=== PATIENT | male | born 1945 | race Caucasian/White ===

== ENCOUNTER 2018-09-01 18:12 | Inpatient (IN) ==
[2018-09-01] MEDS ORDERED: Famotidine PF Inj 20 MG/2 ML Vial IV.PUSH ONE (18:30)
[2018-09-01 18:52] LABS: Baso # (Auto) 0.2 th/mm3 (0.0-0.2); Baso % (Auto) 1.4 % (0.0-2.0); Eos # (Auto) 0.5 th/mm3 (0.0-0.4); Eos % (Auto) 3.4 % (0.0-4.0); Hematocrit 48.6 % (39.0-51.0); Hemoglobin 16.1 gm/dL (13.0-17.0); Lymph # (Auto) 3.3 th/mm3 (1.0-4.8); Lymph % (Auto) 21.9 % (9.0-44.0); Mean Corpuscular HGB Conc 33.3 % (32.0-36.0); Mean Corpuscular Hemoglobin 28.4 pg (27.0-34.0); Mean Corpuscular Volume 85.4 fL (80.0-100.0); Mean Platelet Volume 8.9 fL (7.0-11.0); Mono # (Auto) 1.1 th/mm3 (0.0-0.9); Mono % (Auto) 7.1 % (0.0-8.0); Neut # (Auto) 10.2 th/mm3 (1.8-7.7); Neut % (Auto) 66.2 % (16.0-70.0); Platelet Count 631 th/mm3 (150-450); Red Blood Count 5.69 mil/mm3 (4.50-5.90); Red Cell Distribution Width 12.9 % (11.6-17.2); White Blood Count 15.3 th/mm3 (4.0-11.0)
--- NOTE | 2018-09-01 18:55 | ED ---
HPI General Chief Complaint: Chest Pain Stated Complaint: Chest pain Time Seen by Provider: 09/01/18 18:19 Source: patient and family Limitations: no limitations History of Present Illness HPI narrative: Patient is a 72-year-old male, past medical history significant for diabetes, hypertension coronary artery disease with a recent cholecystectomy presents with complaint of 2 previous episodes of sudden, severe , epigastric/lower chest pain that is a sharp heaviness. It begins at rest while doing nothing in particular. It is associated with diaphoresis, nausea, vomiting. When it happened earlier today he gave himself 3 sprays of nitro and it eventually resolved though he is not sure if it is secondary to the nitro or not. No fever nor chills. No constipation or diarrhea. MD complaint: Reports chest pain STEMI Alert: No Onset (ago): hour(s) Duration: intermittent Onset: during rest Pain location: Reports substernal and epigastric Severity: severe Quality: Reports heaviness and sharp Pain radiation: Reports none Exacerbating factors: nothing Associated symptoms: Reports nausea and diaphoresis Treatments prior to arrival chest pain: Reports nitroglycerin Related Data Home Medications Medication Instructions Recorded Confirmed amlodipine 5 mg PO DAILY 09/01/18 09/01/18 aspirin [Aspir-81] 81 mg PO DAILY 09/01/18 09/01/18 fenofibric acid (choline) 135 mg PO DAILY 09/01/18 09/01/18 [Trilipix] fluticasone 1 spray INTRANASAL DAILY 09/01/18 09/01/18 isosorbide mononitrate 60 mg PO QAM 09/01/18 09/01/18 lisinopril 20 mg PO DAILY 09/01/18 09/01/18 metoprolol succinate 50 mg PO DAILY 09/01/18 09/01/18 nitroglycerin [Nitrostat] 0.4 mg SUBLINGUAL Q5-15M PRN 09/01/18 09/01/18 pantoprazole 40 mg PO DAILY 09/01/18 09/01/18 ranolazine [Ranexa] 500 mg PO BID 09/01/18 09/01/18 simvastatin 20 mg PO QPM 09/01/18 09/01/18 Allergies Allergy/AdvReac Type Severity Reaction Status Date / Time No Known Allergies Allergy Verified 09/01/18 18:30 Review of Systems ROS: all other systems reviewed are negative [facility] Medical History Medical History History of diabetes mellitus (Acute) Hypertension (Acute) Surgical History Surgical History Hx laparoscopic cholecystectomy (Acute) Hx of heart artery stent (Acute) Social History Social History Substance History: No History of Abuse Second Hand Smoke Exposure: No Smoking Status: Never smoker How Often Do You Have a Drink Containing Alcohol: 2 to 4 times a month Recent Travel in [facility] within the Last 8 Weeks: No Recent Out of Country Travel within the Last 8 Weeks: No Exam Narrative Exam Narrative: GENERAL: Well-appearing male in no acute distress; he is hard of hearing and forgot his hearing aids at home. SKIN: Focused skin assessment warm/dry. Previous surgical scars appear to be healing well. HEAD: Atraumatic. Normocephalic. EYES: Pupils equal and round. No scleral icterus. No injection or drainage. ENT: No nasal bleeding or discharge. Mucous membranes pink and moist. NECK: Trachea midline. No JVD. CARDIOVASCULAR: Regular rate and rhythm. No murmur appreciated. No rashes. RESPIRATORY: No accessory muscle use. Clear to auscultation. Breath sounds equal bilaterally. GASTROINTESTINAL: Abdomen soft, non-tender, nondistended. Hepatic and splenic margins not palpable. MUSCULOSKELETAL: No obvious deformities. No clubbing. No cyanosis. No edema. NEUROLOGICAL: Awake and alert. No obvious cranial nerve deficits. Motor grossly within normal limits. Normal speech. PSYCHIATRIC: Appropriate mood and affect; insight and judgment normal. Course Hospital Course: 1844: Patient had sudden spasm of the same pain in the low chest/upper abdomen. He is pale and diaphoretic with NBNB emesis. EKG shows normal sinus rhythm without ST T wave changes. Initial Documented Vital Signs Temperature 97.6 F 09/01/18 18:15 Pulse Rate 79 09/01/18 18:15 Respiratory Rate 20 09/01/18 18:15 Blood Pressure 139/77 09/01/18 18:15 Pulse Oximetry 96 09/01/18 18:15 Last Documented Vital Signs Temperature 97.6 F 09/01/18 18:15 Pulse Rate 75 09/01/18 20:20 Respiratory Rate 18 09/01/18 20:20 Blood Pressure 102/64 09/01/18 20:20 Pulse Oximetry 96 09/01/18 20:20 Medical Decision Making MDM Narrative Medical decision making narrative: Patient is a 72-year-old male who presents after having multiple episodes of severe pain in his lower chest/upper abdomen. He appeared well on arrival here initial EKG was unremarkable. He did have another episode while in the emergency department during which time he was diaphoretic with vomiting and appeared pale. EKG done at that time was unchanged. Labs reveal a white blood cell count of 15 and an elevated lipase. CT shows persistent pneumobilia in the common duct stent which is in place. I spoke with Dr Negron regarding the pneumobilia whom stated that it should persist essentially forever, but that the patient was at risk for cholangitis even without his gallbladder. He recommended the patient have antibiotics but stated that as he has had a cholecystectomy, there is nothing else to do surgically at this time (but patient may need GI). Cultures have been drawn and he has been given zosyn. He is being treated empirically for possible sepsis as he has a leukocytosis but may have a masked HR secondary to his medications. I discussed the case with Dr Shaw, hospitalist record clerk salesperson, whom agreed to the admission. Medical Screen Exam Complete: Yes Emergency Medical Condition: Yes Differential Diagnosis Differential Diagnosis: Differential diagnosis includes but is not limited to acute coronary syndrome, pericarditis, peptic ulcer disease, perforated viscus, pericarditis. Medical Records Medical records reviewed: Yes I reviewed the patient's medical records. Lab Data Lab results reviewed: Yes I reviewed the patient's lab results. Result diagrams: 09/01/18 18:20 09/01/18 18:20 Lab Results 09/01/18 09/01/18 09/01/18 Range/Units 18:20 18:20 18:20 CBC w Diff Auto diff final WBC 15.3 H (4.0-11.0) th/mm3 RBC 5.69 (4.50-5.90) mil/mm3 Hgb 16.1 (13.0-17.0) gm/dL Hct 48.6 (39.0-51.0) % MCV 85.4 (80.0-100.0) fL MCH 28.4 (27.0-34.0) pg MCHC 33.3 (32.0-36.0) % RDW 12.9 (11.6-17.2) % Plt Count 631 H (150-450) th/mm3 MPV 8.9 (7.0-11.0) fL Neut % (Auto) 66.2 (16.0-70.0) % Lymph % (Auto) 21.9 (9.0-44.0) % [place] % (Auto) 7.1 (0.0-8.0) % Eos % (Auto) 3.4 (0.0-4.0) % Baso % (Auto) 1.4 (0.0-2.0) % Neut # (Auto) 10.2 H (1.8-7.7) th/mm3 Lymph # (Auto) 3.3 (1.0-4.8) th/mm3 [place] # (Auto) 1.1 H (0.0-0.9) th/mm3 Eos # (Auto) 0.5 H (0.0-0.4) th/mm3 Baso # (Auto) 0.2 (0.0-0.2) th/mm3 WBC Differential . Differential Comment . D-Dimer Quant (PE/DVT) Cancelled Sodium 137 (136-145) meq/L Potassium 4.4 (3.5-5.1) meq/L Chloride 105 (98-107) meq/L Carbon Dioxide 21.3 (21.0-32.0) meq/L Anion Gap 11 (5-15) meq/L BUN 20 H (7-18) mg/dL Creatinine 1.30 (0.60-1.30) mg/dL Estimated GFR 54 L (>89) mL/min Random Glucose 110 H (74-106) mg/dL Calcium 7.8 L (8.5-10.1) mg/dL Total Bilirubin 0.5 (0.2-1.0) mg/dL AST 62 H (15-37) U/L ALT 33 (12-78) U/L Alkaline Phosphatase 61 (45-117) U/L Troponin I Less than 0.02 L (0.02-0.05) ng/mL B-Natriuretic Peptide (0-100) pg/mL Total Protein 7.2 (6.4-8.2) g/dL Albumin 3.3 L (3.4-5.0) g/dL Lipase 837 H (73-393) U/L Urine Color (Yellw/Straw) Urine Clarity (Clear) Urine pH (5.0-8.5) Ur Specific [place] (1.002-1.035) Urine Protein (Neg-Trace) mg/dL Urine Glucose (UA) (Negative) mg/dL Urine Ketones (Negative) mg/dL Urine Occult Blood (Negative) Urine Nitrate (Negative) Urine Bilirubin (Negative) Urine Urobilinogen (Less than 2) mg/dL Ur Leukocyte Esterase (Negative) Urine RBC (0-3) /hpf Urine WBC (0-5) /hpf Ur Squamous Epith Cells (0-5) /hpf Micro UA Comment Ur Microscopic Review Urine Culture Comments 09/01/18 09/01/18 Range/Units 18:20 22:00 CBC w Diff WBC (4.0-11.0) th/mm3 RBC (4.50-5.90) mil/mm3 Hgb (13.0-17.0) gm/dL Hct (39.0-51.0) % MCV (80.0-100.0) fL MCH (27.0-34.0) pg MCHC (32.0-36.0) % RDW (11.6-17.2) % Plt Count (150-450) th/mm3 MPV (7.0-11.0) fL Neut % (Auto) (16.0-70.0) % Lymph % (Auto) (9.0-44.0) % [place] % (Auto) (0.0-8.0) % Eos % (Auto) (0.0-4.0) % Baso % (Auto) (0.0-2.0) % Neut # (Auto) (1.8-7.7) th/mm3 Lymph # (Auto) (1.0-4.8) th/mm3 [place] # (Auto) (0.0-0.9) th/mm3 Eos # (Auto) (0.0-0.4) th/mm3 Baso # (Auto) (0.0-0.2) th/mm3 WBC Differential Differential Comment D-Dimer Quant (PE/DVT) Sodium (136-145) meq/L Potassium (3.5-5.1) meq/L Chloride (98-107) meq/L Carbon Dioxide (21.0-32.0) meq/L Anion Gap (5-15) meq/L BUN (7-18) mg/dL Creatinine (0.60-1.30) mg/dL Estimated GFR (>89) mL/min Random Glucose (74-106) mg/dL Calcium (8.5-10.1) mg/dL Total Bilirubin (0.2-1.0) mg/dL AST (15-37) U/L ALT (12-78) U/L Alkaline Phosphatase (45-117) U/L Troponin I (0.02-0.05) ng/mL B-Natriuretic Peptide 36 (0-100) pg/mL Total Protein (6.4-8.2) g/dL Albumin (3.4-5.0) g/dL Lipase (73-393) U/L Urine Color Yellow (Yellw/Straw) Urine Clarity Clear (Clear) Urine pH 5.0 (5.0-8.5) Ur Specific [place] Less/equal 1.005 (1.002-1.035) Urine Protein Trace (Neg-Trace) mg/dL Urine Glucose (UA) Negative (Negative) mg/dL Urine Ketones Negative (Negative) mg/dL Urine Occult Blood Negative (Negative) Urine Nitrate Negative (Negative) Urine Bilirubin Negative (Negative) Urine Urobilinogen 0.2 (Less than 2) mg/dL Ur Leukocyte Esterase Negative (Negative) Urine RBC 0-3 (0-3) /hpf Urine WBC 0-5 (0-5) /hpf Ur Squamous Epith Cells 0-5 (0-5) /hpf Micro UA Comment Culture not ind Ur Microscopic Review Microscopic reviewed Urine Culture Comments Culture not ind Imaging Data Attestation: I personally reviewed and interpreted this imaging study as follows : My impression: No acute cardiopulmonary process. Radiologist's impression: Chest X-Ray 09/01/18 18:30 CONCLUSION: No acute cardiopulmonary abnormality is identified. Abdomen/Pelvis CT 09/01/18 18:55 CONCLUSION: 1. No acute finding is identified to explain the abdominal pain. There is a stent within the common duct. Common duct is normal in size and there is pneumobilia. 2. Nonacute findings include moderate atherosclerotic disease, coronary artery calcification, and sigmoid diverticulosis. There is a 1.2 cm low-density lesion in the right mid kidney that does not meet criteria for a simple cyst. This should be further characterize when patient condition permits and correlated with prior studies. ECG Data EKG Prior to Arrival: No Attestation: I personally reviewed and interpreted this ECG as follows: (Sinus rhythm at a rate of [address] or T wave changes.) Discharge Plan Discharge Disposition Patient Disposition: ED Admit(ED Internal Use Only) Discharge Condition Condition: Stable Discharge Order Discharge Orders: ED Use Only Admit Order (Routine); Ordered 09/01/18 Ordered By: Brenda Stark Discharge Details Diagnosis: Abdominal pain, acute, epigastric, Chest pain, rule out acute myocardial infarction, Acute cholangitis Physicians Team ED Provider: Brenda Stark Attending Provider: James Shaw Other Providers: Fracisco Patel V Discharge Interventions Interventions: Vital Signs Last Done: 09/01/18 20:20 Status ED Status: Admitted Patient
[2018-09-01 18:57] LABS: Chloride 105 meq/L (98-107); Potassium 4.4 meq/L (3.5-5.1); Sodium 137 meq/L (136-145)
[2018-09-01 19:02] LABS: Calcium 7.8 mg/dL (8.5-10.1)
[2018-09-01 19:03] LABS: Albumin 3.3 g/dL (3.4-5.0); Anion Gap 11 meq/L (5-15); Blood Urea Nitrogen 20 mg/dL (7-18); Carbon Dioxide 21.3 meq/L (21.0-32.0); Glucose,Random 110 mg/dL (74-106); Lipase 837 U/L (73-393)
[2018-09-01 19:06] LABS: Alanine Aminotransferase 33 U/L (12-78); Aspartate Aminotransferase 62 U/L (15-37); Glomerular Filtration Rate 54 mL/min (>89)
[2018-09-01 19:08] LABS: Total Protein 7.2 g/dL (6.4-8.2)
[2018-09-01 19:09] LABS: Alkaline Phosphatase 61 U/L (45-117)
--- NOTE | 2018-09-01 19:30 | XR ---
EXAM DATE: 09/01/2018 7:28 PM EST AGE/SEX: 72 years / Male INDICATIONS: . Weakness. Cough. CLINICAL DATA: This is the patient's initial encounter. Patient reports that signs and symptoms have been present for 3 days and indicates a pain score of 5/10. MEDICAL/SURGICAL HISTORY: None. None. COMPARISON: No prior exams available for comparison. FINDINGS: PA and lateral views of the chest demonstrate a normal-sized cardiac silhouette. There is no effusion , consolidation, or pneumothorax. There is mild atelectasis at the lung bases. Bones and soft tissues demonstrate no acute abnormality. There is mild degenerative change of the thoracic spine. CONCLUSION: No acute cardiopulmonary abnormality is identified. Electronically signed by: Prem Austin MD 09/01/2018 7:29 PM EST
--- NOTE | 2018-09-01 21:19 | CT ---
EXAM DATE: 09/01/2018 8:54 PM EST AGE/SEX: 72 years / Male INDICATIONS: Chest pain and abdominal pain. CLINICAL DATA: This is the patient's initial encounter. Patient reports that signs and symptoms have been present for 1 day and indicates a pain score of 5/10. MEDICAL/SURGICAL HISTORY: . Diabetes mellitus. Hypertension. . Laparoscopic cholecystectomy. H eart artery stent. ORAL CONTRAST: No oral contrast ingested. RADIATION DOSE: 8.20 CTDI (mGy) COMPARISON: No prior exams available for comparison. TECHNIQUE: Multiple contiguous axial images were obtained through the abdomen and pelvis following b olus infusion of 80 ml Omnipaque 350 (iohexol) nonionic water-soluble contrast as a single exam dos e. No oral contrast ingested. Using automated exposure control and adjustment of the mA and/or kV ac cording to patient size, radiation dose was kept as low as reasonably achievable to obtain optimal di agnostic quality images. DICOM format image data is available electronically for review and comparis on. FINDINGS: Lower chest: There is mild dependent atelectasis at the lung bases. Coronary artery calcification is present. Hepatobiliary: No focal liver lesion is identified. Hepatic vasculature demonstrates no abnormality. Gallbladder is absent with clips in the gallbladder fossa. There is pneumobilia with a common duct st ent in place extends proximally from the origin of the common hepatic duct and distally into the seco nd portion of the duodenum. The common bile duct is nondilated but contains air. Kidneys: No hydronephrosis or stone. There is a 1.2 cm low-density lesion in the right mid kidney hollie t does not meet criteria for a simple cyst and there is a 5 mm low-density lesion in the left mid kid tor that is too small to characterize. Adrenal Glands: Within normal limits. Spleen: Within normal limits. Pancreas: Within normal limits. Vascular: The aorta is nonaneurysmal. There is moderate atherosclerotic calcification in the infraren al aorta. Bowel/Mesentery: The stomach and small bowel demonstrate no abnormality. No acute colon abnormality i s seen. There is no free intraperitoneal air or fluid. Appendix is normal. There is sigmoid diverticu losis. Abdominal Wall: No hernia is visualized. Retroperitoneum: No lymphadenopathy. Bladder: No wall thickening or mass. Reproductive: Within normal limits. Inguinal: No lymphadenopathy or hernia. Musculoskeletal: No acute osseous abnormality is identified. There are degenerative changes of the chester mbar spine. CONCLUSION: 1. No acute finding is identified to explain the abdominal pain. There is a stent within the common duct. Common duct is normal in size and there is pneumobilia. 2. Nonacute findings include moderate atherosclerotic disease, coronary artery calcification, and si gmoid diverticulosis. There is a 1.2 cm low-density lesion in the right mid kidney that does not meet criteria for a simple cyst. This should be further characterize when patient condition permits and c orrelated with prior studies. Electronically signed by: Prem Austin MD 09/01/2018 9:18 PM EST
[2018-09-01] MEDS ORDERED: Piperacil/Tazo 4.5 GM Premix 4.5 GM/100 ML BAG IV.SIG ONE (21:52)
[2018-09-01] MEDS ORDERED: Sod Chloride 0.9% Inj 1,000 ML IV.SIG SCH (22:00)
[2018-09-01] MEDS ORDERED: Bisacodyl 10 MG Supp RECTAL PRN (22:03)
[2018-09-01] MEDS ORDERED: Acetaminophen 325 MG Tablet PO PRN (22:03)
[2018-09-01 22:20] LABS: Bilirubin,Urine Negative (Negative); Clarity,Urine Clear (Clear); Color,Urine Yellow (Yellw/Straw); Glucose,Urine (UA) Negative (Negative); Leukocyte Esterase,Urine Negative (Negative); Nitrite,Urine Negative (Negative); Specific Gravity,Urine Less/Equal 1.005 (1.002-1.035); Urobilinogen,Urine 0.2 mg/dL (Less than 2)
[2018-09-01 22:27] LABS: RBC,Urine 0-3 /hpf (0-3); Squamous Epithelial Cell,Urine 0-5 /hpf (0-5); WBC,Urine 0-5 /hpf (0-5)
[2018-09-01 22:47] LABS: Creatine Kinase 44 U/L (39-308)
[2018-09-01] MEDS: Sod Chloride 0.9% Inj 1,000 ML IV.CONT SCH (23:27)
[2018-09-02] MEDS: Piperacil/Tazo 3.375 GM Premix 50 ML IV.SIG SCH ×2 (04:30→10:12)
[2018-09-02] MEDS ORDERED: Isosorbide Mononitrate 60 MG ER 24HR Tablet (Imdur) PO SCH (06:00)
[2018-09-02 06:22] LABS: Baso # (Auto) 0.1 th/mm3 (0.0-0.2); Baso % (Auto) 0.8 % (0.0-2.0); Eos # (Auto) 0.1 th/mm3 (0.0-0.4); Eos % (Auto) 0.5 % (0.0-4.0); Hematocrit 41.6 % (39.0-51.0); Hemoglobin 13.5 gm/dL (13.0-17.0); Lymph # (Auto) 1.5 th/mm3 (1.0-4.8); Lymph % (Auto) 13.7 % (9.0-44.0); Mean Corpuscular HGB Conc 32.4 % (32.0-36.0); Mean Corpuscular Hemoglobin 27.4 pg (27.0-34.0); Mean Corpuscular Volume 84.6 fL (80.0-100.0); Mean Platelet Volume 9.1 fL (7.0-11.0); Mono # (Auto) 0.8 th/mm3 (0.0-0.9); Neut # (Auto) 8.7 th/mm3 (1.8-7.7); Platelet Count 486 th/mm3 (150-450); Red Blood Count 4.92 mil/mm3 (4.50-5.90); Red Cell Distribution Width 12.9 % (11.6-17.2); White Blood Count 11.2 th/mm3 (4.0-11.0)
[2018-09-02 06:29] LABS: Potassium 4.3 meq/L (3.5-5.1)
[2018-09-02 06:40] LABS: Creatine Kinase 36 U/L (39-308)
[2018-09-02 06:44] LABS: Albumin 2.9 g/dL (3.4-5.0); Calcium 7.4 mg/dL (8.5-10.1); Carbon Dioxide 22.1 meq/L (21.0-32.0)
[2018-09-02] MEDS ORDERED: Lisinopril 20 MG Tablet PO SCH (09:00)
[2018-09-02] MEDS ORDERED: Ranolazine 500 MG 12HR ER Tablet PO SCH (09:00)
[2018-09-02] MEDS ORDERED: amLODIPine 5 MG Tablet PO SCH (09:00)
[2018-09-02 10:44] LABS: Lipase 147 U/L (73-393)
[2018-09-02 10:57] LABS: Creatine Kinase 32 U/L (39-308)
--- NOTE | 2018-09-02 11:27 | P.HP ---
History of Present Illness Primary Care Physician: KI EMERSON Chief Complaint: Abdominal pain, intractable nausea vomiting History of Present Illness: 73-year-old male with known history of hypertension, hyperlipidemia, coronary artery disease, diabetes, recent cholecystectomy with common bile duct stenting. Patient states that approximate 3 weeks ago he did undergo cholecystectomy with common bile duct stenting and has been doing well other than some intermittent spasms in his epigastric region. He has had a couple episodes of significant pain in the epigastric region without any radiation to the back, lower abdomen, groin. Yesterday he was doing well and he did eat breakfast and then he started developing epigastric pain which he described was excruciating. He started having nausea and vomiting until he was only dry heaving. Patient states that the pain was located in his epigastric region which was severe 10/10 on a pain scale. The pain would not resolve so he came to the emergency department for evaluation. Patient did have workup done and found to have elevated white count, elevated lipase level, CT scan did not indicate any acute abnormality, still showing some pneumobilia from his ERCP. Upon evaluating patient today he indicated that the pain is much improved. He has not had any recurrent nausea or vomiting. Denies any hematemesis, diarrhea , constipation, shortness of breath, dyspnea. Inpatient Certification: I certify that the inpatient services were ordered in accordance with Medicare regulations governing the order. This includes certification that hospital inpatient services are reasonable and necessary and in the case of services not specified as inpatient-only under 42 CFR 419.22(n), that they are appropriately provided as inpatient services in accordance to with the 2-midnight benchmark under 43 CFR 412.3(e) Estimated Total Length of Stay (Days): 3 Plans for Post Hospital Care: Home Review of Systems All other systems reviewed negative except as stated in HPI Gastrointestinal: Reports abdominal pain, Reports nausea, Reports vomiting PMFSH - History History Provided By: Patient, Family Member - Medical History Medical History: Medical History (Last Updated 09/02/18 @ 11:20 by BRIA Gant) Coronary artery disease History of diabetes mellitus Hyperlipidemia Hypertension - Surgical History Surgical History: Surgical History (Last Updated 09/02/18 @ 11:20 by BRIA Gant) History of cataract surgery History of knee surgery History of tonsillectomy History of vasectomy Hx laparoscopic cholecystectomy Hx of heart artery stent Hx of shoulder surgery - Family History Family History: Family History (Last Updated 09/02/18 @ 11:21 by BRIA Gant) Other No pertinent family history - Tobacco History Second Hand Smoke Exposure: No Tobacco Use In Past 30 Days: No Smoking Status: Never smoker - Alcohol History How Often Do You Have a Drink Containing Alcohol: 2 to 4 times a month - Substance Use History Substance History: No History of Abuse - Travel History Recent Travel in the [place] Within the Last 8 Weeks: No Recent Travel Out of the Country Within the Last 8 Weeks: No - Immunization History Tetanus Immunization: <5 Years Hx Influenza Vaccine This Season: Yes Medications and Allergies Active Medications: Active Medications Acetaminophen (Tylenol) 650 mg PO Q4H PRN PRN Reason: Temp > 100.4 Al Hydroxide/Mg Hydroxide (Milk Of Magnesia Liq) 30 ml PO Q12H PRN PRN Reason: Mild Constipation Amlodipine Besylate (Norvasc) 5 mg PO DAILY [facility] Last Admin: 09/02/18 08:32 Dose: 5 mg Aspirin (Ecotrin) 81 mg PO DAILY [facility] Last Admin: 09/02/18 08:31 Dose: 81 mg Bisacodyl (Dulcolax Supp) 10 mg RECTAL DAILY PRN PRN Reason: SEVERE CONSITIPATION Fluticasone Propionate (Flonase Nasal [place]) 1 spray EACH NARE DAILY [facility] Last Admin: 09/02/18 10:11 Dose: Not Given Piperacillin/Tazobactam/Dextrose (Zosyn 3.375 Gm Premix) 50 mls @ 100 mls/hr IV.SIG Q6H [facility] Last Admin: 09/02/18 10:12 Dose: 100 mls/hr Sodium Chloride (Ns Inj) 1,000 mls @ 75 mls/hr IV.CONT .[id number] [facility] Last Infusion: 09/02/18 06:17 Dose: 75 mls/hr Isosorbide Mononitrate (Imdur) 60 mg PO DAILY@0600 [facility] Last Admin: 09/02/18 06:14 Dose: 60 mg Lactulose (Lactulose Liq) 30 ml PO DAILY PRN PRN Reason: SEVERE CONSITIPATION Lisinopril (Prinivil) 20 mg PO DAILY [facility] Last Admin: 09/02/18 08:32 Dose: 20 mg Metoprolol Succinate (Toprol Xl) 50 mg PO DAILY [facility] Last Admin: 09/02/18 08:31 Dose: 50 mg Ondansetron HCl (Zofran Inj) 4 mg IV.PUSH Q6H PRN PRN Reason: NAUSEA OR VOMITING Last Admin: 09/01/18 23:22 Dose: 4 mg Pantoprazole Sodium (Protonix) 40 mg PO DAILY [facility] Last Admin: 09/02/18 08:32 Dose: 40 mg Pravastatin Sodium (Pravachol) 40 mg PO DAILY@1800 [facility] Ranolazine (Ranexa) 500 mg PO BID [facility] Last Admin: 09/02/18 08:30 Dose: 500 mg Sennosides (Senokot) 17.2 mg PO Q12H PRN PRN Reason: Moderate Constipation Sodium Chloride (Ns Flush) 2 ml IV.FLUSH BID [facility] Last Admin: 09/02/18 10:13 Dose: 2 ml Sodium Chloride (Ns Flush) 2 ml IV.FLUSH PRN PRN PRN Reason: FLUSH AFTER USING IV ACCESS Allergies Allergy/AdvReac Type Severity Reaction Status Date / Time No Known Allergies Allergy Verified 09/01/18 18:30 Home Medications Medication Instructions Recorded Confirmed Type amlodipine 5 mg PO DAILY 09/01/18 09/01/18 History aspirin [Aspir-81] 81 mg PO DAILY 09/01/18 09/01/18 History fenofibric acid (choline) 135 mg PO DAILY 09/01/18 09/01/18 History [Trilipix] fluticasone 1 spray INTRANASAL DAILY 09/01/18 09/01/18 History isosorbide mononitrate 60 mg PO QAM 09/01/18 09/01/18 History lisinopril 20 mg PO DAILY 09/01/18 09/01/18 History metoprolol succinate 50 mg PO DAILY 09/01/18 09/01/18 History nitroglycerin [Nitrostat] 0.4 mg SUBLINGUAL Q5-15M PRN 09/01/18 09/01/18 History pantoprazole 40 mg PO DAILY 09/01/18 09/01/18 History ranolazine [Ranexa] 500 mg PO BID 09/01/18 09/01/18 History simvastatin 20 mg PO QPM 09/01/18 09/01/18 History Exam Vital signs: Vital Signs 09/01/18 18:15 09/01/18 19:06 09/01/18 19:11 Temperature 97.6 F Pulse Rate 79 94 H Respiratory Rate 20 20 Blood Pressure 139/77 107/75 Pulse Oximetry 96 97 97 09/01/18 19:15 09/01/18 20:20 09/01/18 22:41 Temperature Pulse Rate 77 75 74 Respiratory Rate 18 18 Blood Pressure 102/64 106/72 Pulse Oximetry 96 97 09/01/18 23:00 09/01/18 23:21 09/01/18 23:59 Temperature Pulse Rate 79 80 Respiratory Rate Blood Pressure Pulse Oximetry 96 09/02/18 01:10 09/02/18 03:58 09/02/18 04:00 Temperature 97.8 F 98.1 F Pulse Rate 67 74 75 Respiratory Rate 20 20 Blood Pressure 123/58 L 107/59 L Pulse Oximetry 96 96 09/02/18 08:00 Temperature 97.2 F L Pulse Rate 78 Respiratory Rate 20 Blood Pressure 114/67 Pulse Oximetry 95 Intake & Output 09/01/18 09/02/18 09/02/18 18:59 06:59 18:59 Intake Total 1637 / 1637 Balance 1637 / 1637 Weight 71 kg 69.7 kg Intake: IV 1637 / 1637 NS Inj 1,000 ML @ 75 mls/hr IV. 487 / 487 CONT .[id number] [facility] Rx#: [id number] Zosyn 3.375 GM Premix 50 ML @ 50 / 50 100 mls/hr IV.SIG Q6H [facility] Rx#: [id number] Zosyn 4.5 GM Premix 4.5 gm In 100 / 100 100 ml @ 200 mls/hr IV.SIG ONCE ONE Rx#:[id number] NS Inj 1,000 ML @ 1000 mls/hr 1000 / 1000 IV.SIG BOLUS [facility] Rx#:[id number] Other: # Voids 1 Date of Last Bowel Movement 09/02/18 09/02/18 # Bowel Movements 1 Weight On Admission 70 kg Narrative: GENERAL: Well-developed, well-nourished, in no acute distress. alert and orientated HEENT: Head is normocephalic without any lesions or masses noted. Facial features are symmetric. Eyes: Pupils equal round reactive to light. Extraocular muscles are intact. Conjunctivae were clear. Oropharyngeal: Pharynx without any erythema edema. Tongue is midline without deviation. Buccal mucosa is moist without any masses or lesions NECK: Supple without any masses. Trachea midline no deviation. No JVD, no bruits are appreciated CARDIAC: Regular rhythm, regular rate. S1/S2 are heard. No murmurs gallops or rubs. LUNGS: Clear to auscultation bilaterally. No wheeze, rhonchi or rales. No use of accessory muscles on inspiration or expiration. ABDOMEN: Soft, significant epigastric tenderness. Nondistended. Bowel sounds heard in all 4 quadrants. No organomegaly or masses. Negative rebound, positive guarding in epigastric region EXTREMITIES: No edema, pulses are equal bilaterally. No cyanosis or clubbing NEUROLOGY: Mood and affect appear appropriate. Cranial nerves II through XII grossly intact. Muscle strength 5/5 in upper and lower extremities bilaterally. Deep tendon reflexes are 2+ in upper and lower extremities bilaterally. Results - Labs CBC & Chem 7: 09/02/18 04:35 09/02/18 04:35 Labs: Laboratory Results - last 24 hr 09/01/18 09/01/18 09/01/18 18:20 18:20 18:20 CBC w Diff Auto diff final WBC 15.3 H RBC 5.69 Hgb 16.1 Hct 48.6 MCV 85.4 MCH 28.4 MCHC 33.3 RDW 12.9 Plt Count 631 H MPV 8.9 Neut % (Auto) 66.2 Lymph % (Auto) 21.9 [place] % (Auto) 7.1 Eos % (Auto) 3.4 Baso % (Auto) 1.4 Neut # (Auto) 10.2 H Lymph # (Auto) 3.3 [place] # (Auto) 1.1 H Eos # (Auto) 0.5 H Baso # (Auto) 0.2 WBC Differential . Differential Comment . D-Dimer Quant (PE/DVT) Cancelled Sodium 137 Potassium 4.4 Chloride 105 Carbon Dioxide 21.3 Anion Gap 11 BUN 20 H Creatinine 1.30 Estimated GFR 54 L Random Glucose 110 H Lactic Acid Calcium 7.8 L Calcium Adj for Albumin Total Bilirubin 0.5 AST 62 H ALT 33 Alkaline Phosphatase 61 Total Creatine Kinase Troponin I Less than 0.02 L B-Natriuretic Peptide Total Protein 7.2 Albumin 3.3 L Lipase 837 H Urine Color Urine Clarity Urine pH Ur Specific [place] Urine Protein Urine Glucose (UA) Urine Ketones Urine Occult Blood Urine Nitrate Urine Bilirubin Urine Urobilinogen Ur Leukocyte Esterase Urine RBC Urine WBC Ur Squamous Epith Cells Micro UA Comment Ur Microscopic Review Urine Culture Comments 09/01/18 09/01/18 09/01/18 18:20 22:00 22:15 CBC w Diff WBC RBC Hgb Hct MCV MCH MCHC RDW Plt Count MPV Neut % (Auto) Lymph % (Auto) [place] % (Auto) Eos % (Auto) Baso % (Auto) Neut # (Auto) Lymph # (Auto) [place] # (Auto) Eos # (Auto) Baso # (Auto) WBC Differential Differential Comment D-Dimer Quant (PE/DVT) Sodium Potassium Chloride Carbon Dioxide Anion Gap BUN Creatinine Estimated GFR Random Glucose Lactic Acid 2.4 H Calcium Calcium Adj for Albumin Total Bilirubin AST ALT Alkaline Phosphatase Total Creatine Kinase Troponin I B-Natriuretic Peptide 36 Total Protein Albumin Lipase Urine Color Yellow Urine Clarity Clear Urine pH 5.0 Ur Specific [place] Less/equal 1.005 Urine Protein Trace Urine Glucose (UA) Negative Urine Ketones Negative Urine Occult Blood Negative Urine Nitrate Negative Urine Bilirubin Negative Urine Urobilinogen 0.2 Ur Leukocyte Esterase Negative Urine RBC 0-3 Urine WBC 0-5 Ur Squamous Epith Cells 0-5 Micro UA Comment Culture not ind Ur Microscopic Review Microscopic reviewed Urine Culture Comments Culture not ind 09/01/18 09/02/18 09/02/18 22:15 01:02 04:35 CBC w Diff WBC RBC Hgb Hct MCV MCH MCHC RDW Plt Count MPV Neut % (Auto) Lymph % (Auto) [place] % (Auto) Eos % (Auto) Baso % (Auto) Neut # (Auto) Lymph # (Auto) [place] # (Auto) Eos # (Auto) Baso # (Auto) WBC Differential Differential Comment D-Dimer Quant (PE/DVT) Sodium Potassium Chloride Carbon Dioxide Anion Gap BUN Creatinine Estimated GFR Random Glucose Lactic Acid 2.2 H Calcium Calcium Adj for Albumin Total Bilirubin AST ALT Alkaline Phosphatase Total Creatine Kinase 44 36 L Troponin I Less than 0.02 L Less than 0.02 L B-Natriuretic Peptide Total Protein Albumin Lipase Urine Color Urine Clarity Urine pH Ur Specific [place] Urine Protein Urine Glucose (UA) Urine Ketones Urine Occult Blood Urine Nitrate Urine Bilirubin Urine Urobilinogen Ur Leukocyte Esterase Urine RBC Urine WBC Ur Squamous Epith Cells Micro UA Comment Ur Microscopic Review Urine Culture Comments 09/02/18 09/02/18 09/02/18 04:35 04:35 10:10 CBC w Diff Auto diff final WBC 11.2 H RBC 4.92 Hgb 13.5 D Hct 41.6 MCV 84.6 MCH 27.4 MCHC 32.4 RDW 12.9 Plt Count 486 H MPV 9.1 Neut % (Auto) 78.0 H Lymph % (Auto) 13.7 [place] % (Auto) 7.0 Eos % (Auto) 0.5 Baso % (Auto) 0.8 Neut # (Auto) 8.7 H Lymph # (Auto) 1.5 [place] # (Auto) 0.8 Eos # (Auto) 0.1 Baso # (Auto) 0.1 WBC Differential . Differential Comment . D-Dimer Quant (PE/DVT) Sodium 138 Potassium 4.3 Chloride 107 Carbon Dioxide 22.1 Anion Gap 9 BUN 20 H Creatinine 1.10 Estimated GFR 66 L Random Glucose 125 H Lactic Acid Calcium 7.4 L* Calcium Adj for Albumin 8.3 L Total Bilirubin 0.6 AST 23 ALT 25 Alkaline Phosphatase 38 L Total Creatine Kinase 32 L Troponin I Less than 0.02 L B-Natriuretic Peptide Total Protein 6.0 L D Albumin 2.9 L Lipase 147 Urine Color Urine Clarity Urine pH Ur Specific [place] Urine Protein Urine Glucose (UA) Urine Ketones Urine Occult Blood Urine Nitrate Urine Bilirubin Urine Urobilinogen Ur Leukocyte Esterase Urine RBC Urine WBC Ur Squamous Epith Cells Micro UA Comment Ur Microscopic Review Urine Culture Comments 09/02/18 10:10 CBC w Diff WBC RBC Hgb Hct MCV MCH MCHC RDW Plt Count MPV Neut % (Auto) Lymph % (Auto) [place] % (Auto) Eos % (Auto) Baso % (Auto) Neut # (Auto) Lymph # (Auto) [place] # (Auto) Eos # (Auto) Baso # (Auto) WBC Differential Differential Comment D-Dimer Quant (PE/DVT) Sodium Potassium Chloride Carbon Dioxide Anion Gap BUN Creatinine Estimated GFR Random Glucose Lactic Acid 1.4 Calcium Calcium Adj for Albumin Total Bilirubin AST ALT Alkaline Phosphatase Total Creatine Kinase Troponin I B-Natriuretic Peptide Total Protein Albumin Lipase Urine Color Urine Clarity Urine pH Ur Specific [place] Urine Protein Urine Glucose (UA) Urine Ketones Urine Occult Blood Urine Nitrate Urine Bilirubin Urine Urobilinogen Ur Leukocyte Esterase Urine RBC Urine WBC Ur Squamous Epith Cells Micro UA Comment Ur Microscopic Review Urine Culture Comments - Imaging Impressions Chest X-Ray 09/01/18 18:30 CONCLUSION: No acute cardiopulmonary abnormality is identified. Abdomen/Pelvis CT 09/01/18 18:55 CONCLUSION: 1. No acute finding is identified to explain the abdominal pain. There is a stent within the common duct. Common duct is normal in size and there is pneumobilia. 2. Nonacute findings include moderate atherosclerotic disease, coronary artery calcification, and sigmoid diverticulosis. There is a 1.2 cm low-density lesion in the right mid kidney that does not meet criteria for a simple cyst. This should be further characterize when patient condition permits and correlated with prior studies. Caprini VTE Risk Assessment Caprini VTE Risk Assessment: Moderate/High Risk (score >= 2) Caprini Risk Assessment Model: Point Value = 1 Point Value = 2 Point Value = 3 Point Value = 5 Age 41-60 Minor surgery BMI > 25 kg/m2 Swollen legs Varicose veins or History of unexplained or recurrent spontaneous Oral contraceptives or hormone replacement Sepsis (< 1 month) Serious lung disease, including pneumonia (< 1 month) Abnormal pulmonary function Acute myocardial infarction Congestive heart failure (< 1 month) History of inflammatory bowel disease Medical patient at bed rest Age 61-74 Arthroscopic surgery Major open surgery (> 45 min) Laparoscopic surgery (> 45 min) Malignancy Confined to bed (> 72 hours) Immobilizing plaster cast Central venous access Age >= 75 History of VTE Family history of VTE Factor V Leiden Prothrombin [id number] Lupus anticoagulant Anticardiolipin antibodies Elevated serum homocysteine Heparin-induced thrombocytopenia Other congenital or acquired thrombophilia Stroke (< 1 month) Elective arthroplasty Hip, pelvis, or leg fracture Acute spinal cord injury (< 1 month) Prophylaxis Regimen: Total Risk Factor Score Risk Level Prophylaxis Regimen 0-1 Low Early ambulation 2 Moderate Order ONE of the following: *Sequential Compression Device (SCD) *Heparin 5000 units SQ BID 3-4 Higher Order ONE of the following medications: *Heparin 5000 units SQ TID *Enoxaparin/Lovenox 40 mg SQ daily (WT < 150 kg, CrCl > 30 mL/min) *Enoxaparin/Lovenox 30 mg SQ daily (WT < 150 kg, CrCl > 10-29 mL/min) *Enoxaparin/Lovenox 30 mg SQ BID (WT < 150 kg, CrCl > 30 mL/min) AND/OR *Sequential Compression Device (SCD) 5 or more Highest Order ONE of the following medications: *Heparin 5000 units SQ TID (Preferred with Epidurals) *Enoxaparin/Lovenox 40 mg SQ daily (WT < 150 kg, CrCl > 30 mL/min) *Enoxaparin/Lovenox 30 mg SQ daily (WT < 150 kg, CrCl > 10-29 mL/min) *Enoxaparin/Lovenox 30 mg SQ BID (WT < 150 kg, CrCl > 30 mL/min) AND *Sequential Compression Device (SCD) Assessment and Plan - Plan Abdominal pain with elevated lipase, likely pancreatitis, improved -Patient does have recent hospitalization in [place] with cholecystectomy, common bile duct stenting. -Patient is followed by general surgeon and computed tomography technician in outpatient setting -Patient did have elevated lipase level 837, follow-up lipase level this morning is 147 -Patient with mild lactic acidosis which has resolved at this time -CT scan does not indicate any acute pancreatic abnormality at this time -Patient was continued on IV fluids, n.p.o., pain control -Advance diet as tolerated Leukocytosis -Appears to be concentrated from patient's nausea and vomiting -Follow-up CBC with significant improvement Hypertension, hyper lipidemia, coronary artery disease status post stenting -Patient's presenting symptom to possibly be angina variant -Patient has been ruled out for acute coronary event with serial cardiac enzymes are negative -Serial EKGs reviewed by myself which does show sinus rhythm without any changes -Home medications were continued Diabetes -Accu-Cheks with sliding scale insulin DVT prevention -Sequential compression devices Discharge Planning: Discharge home in stable condition Activity: Ad iza. Diet: Healthy heart/diabetic diet Medication per medication reconciliation Follow-up with primary medical doctor in 1 week
[2018-09-02] MEDS: Sod Chloride 0.9% Inj 1,000 ML IV.CONT SCH (13:49)
--- NOTE | 2018-09-03 10:17 | ECG ---
Date Performed: 09/01/2018 Time Performed: 18:15:40 PTAGE: 72 years EKG: Sinus rhythm NORMAL ECG NO PREVIOUS TRACING DOCTOR: Reynaldo Monroe Interpretating Date/Time 09/03/2018 10:17:02
--- NOTE | 2018-09-03 10:18 | ECG ---
Date Performed: 09/01/2018 Time Performed: 18:52:23 PTAGE: 72 years EKG: Sinus rhythm NORMAL ECG PREVIOUS TRACING : 09/01/2018 18.15 DOCTOR: Reynaldo Monroe Interpretating Date/Time 09/03/2018 10:17:07
--- NOTE | 2018-09-03 10:20 | ECG ---
Date Performed: 09/02/2018 Time Performed: 03:52:21 PTAGE: 73 years EKG: Sinus rhythm LOW QRS VOLTAGE IN PRECORDIAL LEADS CONSIDER INFERIOR MYOCARDIAL INFARCTION, AGE INDETERMINATE ABNOR MAL ECG PREVIOUS TRACING : 09/01/2018 18.52 DOCTOR: Reynaldo Monroe Interpretating Date/Time 09/03/2018 10:18:16
--- NOTE | 2018-09-03 10:20 | ECG ---
Date Performed: 09/02/2018 Time Performed: 10:10:09 PTAGE: 73 years EKG: Sinus rhythm LOW QRS VOLTAGE IN PRECORDIAL LEADS BORDERLINE ECG PREVIOUS TRACING : 09/02/2018 03.52 DOCTOR: Reynaldo Monroe Interpretating Date/Time 09/03/2018 10:18:30
== END 2018-09-02 16:17 | disposition home or self-care (01) ==
LOC: PHED 18:12 → PHEDA 21:59 → PH3 22:55
PROVIDERS: ADMIT Internal Medicine; ATTEND Internal Medicine